=== PATIENT | female | born 2005 | race Two or more races ===

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

== ENCOUNTER 2025-08-06 03:13 | Emergency (ER) | payer MEDICAID ==
[~2025-08-06] VITALS: Ht 162.6 cm; Wt 63.7 kg
[~2025-08-06 03:13] MED LIST changes: +ACET500T58 PO; +AMOX875T4 PO
--- NOTE | 2025-08-06 03:44 | ED.PDOC ---
HPI Allergic reaction HPI Comments 20 year-old female, with a Hx of Anxiety, presents to the ED with a chief complaint of allergic reaction at 2300 last night. Patient reports symptoms of hyperventilation, increased body temperature, dizziness, and bodily shaking after taking 10mg Propranolol medication as prescribed by Psychiatrist. Patient has no further complaints or modifying factors at this time. Patient denies symptoms of weakness, fever, SOB, palpitations, N/V/D. REVIEW OF SYSTEMS: General: +bodily shaking. +increased body temp. No fever, no chills, or fatigue HEENT: No sore throat, no earache, no congestion, no neck pain. Cardiac: No chest pain. No palpitations. Lungs: + hyperventilation. No shortness of breath, no cough. GI: No nausea, no vomiting, no diarrhea, no constipation, no abdominal pain : No dysuria, frequency, or urgency. No hematuria. Musculoskeletal: No joint pain , no joint swelling, no extremity edema. Skin: No rash, no itching. Neuro: No headache, + dizziness, no weakness (And as sated in HPI) PHYSICAL EXAM: General: Awake, alert and oriented. No acute distress. Skin: Skin in warm, dry and intact. Appropriate color for ethnicity. HEENT: The head is normocephalic and atraumatic. Conjunctivae are clear without exudates or hemorrhage. Sclera is non-icteric. Eyelids are normal in appearance without swelling or lesions. Oral mucosa is pink and moist Neck: The neck is supple with normal range of motion. No JVD. Cardiac: Heart rate and rhythm are normal. No murmurs, gallops, or rubs are auscultated. Respiratory: No signs of respiratory distress. Lung sounds are clear in all lobes bilaterally without rales, rhonchi, or wheezes. Abdominal: Abdomen is soft, non-tender without distention, guarding or rigidity. Bowel sounds are present and normoactive in all four quadrants. Extremities: Lower extremities without edema. Neurological: The patient is awake, alert and oriented to person, place, and time with normal speech. Speech is clear. There is no facial asymmetry. Psychiatric: Appropriate mood and affect. Good judgement and insight. Chief Complaint: Allergic Reaction Time Seen by MD: 03:22 Primary Care Provider: UNKNOWN Reviewed Notes: Medications, Allergies Allergies: Coded Allergies: NO KNOWN ALLERGIES (Unverified , 04/30/18) Home Meds Active Scripts Amoxicillin & Pot Clavulanate (Amoxicillin/Potassium Cla) 875 Mg Tab, 1 TAB PO BID for 7 Days, #14 TAB 0 Refills Prov:SALVADOR ALMARAZ 05/28/24 Acetaminophen (Acetaminophen) 500 Mg Tab, 500 MG PO Q4HPRN, #30 TAB 0 Refills Prov:SALVADOR ALMARAZ 05/28/24 Pantoprazole Sodium Sesquihydr (Protonix) 40 Mg Tab, 40 MG PO DAILY, #30 TAB Prov:BETY LORENZO MD 05/19/24 Ciprofloxacin Hcl (Ciprofloxacin Hcl) 500 Mg Tab, 1 TAB PO BID for 7 Days, #14 TAB 0 Refills Prov:SALVADOR ALMARAZ 11/14/22 Ondansetron (Zofran) 4 Mg Tab, 1 TAB PO Q8HPRN, #14 TAB 0 Refills Prov:SALVADOR ALMARAZ 11/14/22 Acetaminophen W/ Codeine (Acetaminophen/Codeine) 1 Tab Tab, 1 TAB PO BID, #12 TAB Prov:HUA RUIZ 10/12/22 Information Source: Patient Mode of Arrival: Ambulatory Severity: Moderate Timing: Hours Duration: Since onset Past Medical History PAST MEDICAL HISTORY: Anxiety Surgical History: Denies all surgeries [employer] History: Denies all [employer] Hx Family History Family History: Unknown Social History Smoker: Non-Smoker Alcohol: Denies ETOH Use Drugs: Denies Drug Use Lives In: Home Was a procedure done? Was a procedure done?: No EKG EKG : Pulse Rate (adult): 79 Cardiac Rhythm: NSR Differential diagnosis (all) Differential Diagnosis: Anaphylaxis, Bronchospasm, Drug Reaction X-Ray, Labs, Meds, VS Vital Signs Date Time Temp Pulse Resp B/P (MAP) Pulse Ox O2 Delivery O2 Flow Rate FiO2 08/06/25 05:43 98.4 91 20 123/71 (88) 96 98.4 08/06/25 05:31 79 08/06/25 05:27 79 08/06/25 03:22 16 97 Room Air* 0 21 08/06/25 03:22 96.6 94 16 117/82 97 96.6 Time of 1ST Reevaluation: 04:21 Reevaluation 1ST: Unchanged Patient Education/Counseling: Diagnosis, Treatment, Need For Follow Up Family Education/Counseling: No Family Present SEPSIS Sepsis Screen Physician Orders Ondansetron Po (Zofran Po) (08/06/25 05:45) Acetaminophen Tablet (Tylenol Tablet) (08/06/25 05:45) Vital Signs Date Time Temp Pulse Resp B/P (MAP) Pulse Ox O2 Delivery O2 Flow Rate FiO2 08/06/25 05:43 98.4 91 20 123/71 (88) 96 98.4 08/06/25 05:31 79 08/06/25 05:27 79 08/06/25 03:22 16 97 Room Air* 0 21 08/06/25 03:22 96.6 94 16 117/82 97 96.6 Departure 1 Departure Time of Disposition: 05:36 Impression: Primary Impression: Nausea Additional Impressions: Chest pain Abdominal pain Disposition: HOME / SELF CARE / HOMELESS Condition: Stable Additional Instructions: ED DISCHARGE INSTRUCTIONS Instructions: Please read all instructions provided in this packet carefully. Although you have been discharged from the Emergency Department, this does not m margarita that you have a "clean bill of health". No definitive diagnosis for your symptoms has been made today. It is possible that you are in the process of developing a serious illness. This is why you must return to the ED without fail if any new or worsening symptoms (especially if your symptoms include chest pain, trouble breathing, abdominal pain, fever, headache, confusion, trouble seeing, or trouble walking) It is also very important that you see a primary care provider (PCP) within the next 1-2 days to follow up. If you are unable to get an appointment, return to the ED for re-evaluation if your symptoms do not improve within 12 hours from discharge. Comments 20-year-old female who presents to the emergency department with nausea, chest pain, belly pain after taking 1st dose of escitalopram. Patient is stable during the ED observation. Vital signs within normal limits. EKG sinus rhythm with PACs. Risk factors for ACS. Patient felt stable for discharge to follow up with primary care provider. She is advised to return to the emergency department if her symptoms do not improve within 12 hours. Critical Care Note Critical Care Time?: No Stability Stability form required: No Heart Score Heart Score: Heart Score Response (Comments) Value History N/A 0 EKG N/A 0 Age N/A 0 Risk Factors N/A 0 Troponin N/A 0 Total 0 I personally scribed for ISAURA PELAEZ MD ([email or web address]) on 08/06/25 at 03:44. Electronically submitted by Shasta Box (CASTT). I personally scribed for ISAURA PELAEZ MD ([email or web address]) on 08/06/25 at 05:31. Electronically submitted by [employer]asta Box ([facility]T). ISAURA PELAEZ MD Aug 06, 2025 03:44
--- NOTE | 2025-08-06 05:29 | ECG ---
[facility] Test Date: 2025-08-06 Test Time: 05:27:30 Pat Name: EYAD HENNING Department: ED Room: Gender: F Accuracy Expert: : 2005 Requested By: ISAURA PELAEZ Order Number: [id number] Reading MD: Stevenson Bowman Measurements Intervals [place] Rate: 79 P: 201 [place]: 183 QRS: 84 QRSD: 86 T: 59 QT: 387 QTc: 444 Interpretive Statements Sinus or ectopic atrial rhythm Electronically Signed On 08-08-2025 10:31:08 PST by Stevenson Bowman Please click the below link to view image of tracing.
[2025-08-06 05:43] VITALS: BP 123/71
[2025-08-06 05:45] VITALS: PULSE 91; RESP 20; O2SAT 96
[2025-08-06 05:54] VITALS: TEMP 97.8
[2025-08-06] MEDS: ACETAMINOPHEN 325 MG TAB PO ONE (05:54)
[2025-08-06] MEDS: ONDANSETRON ODT 4 MG TAB PO ONE (05:54)
== END 2025-08-06 05:57 | disposition home or self-care (01) ==
LOC: ER 03:13
DX: R07.89 Other chest pain (principal); R11.0 Nausea; R10.9 Unspecified abdominal pain; F41.9 Anxiety disorder, unspecified; Z79.899 Other long term (current) drug therapy; Z79.891 Long term (current) use of opiate analgesic
CPT/HCPCS: 93005; 99283; Q0162